=== PATIENT | female | born 1955 | race Caucasian/White ===

== ENCOUNTER → 2018-02-07 | Outpatient (CLI) | payer OTHER ==
[~2018-02-07] MED LIST: AML2.5T PO; BISO1TAB4 PO; CIPR-225 PO; HYDR-1231 PO; HYDR-3456 PO; MTF500T PO; OLME5TAB3 PO; TAMS0.4C98 PO; diclofenac
--- NOTE | 2018-02-07 11:19 | Diagnostic Imaging Report ---
PROCEDURE: MRI lumbar spine. TECHNIQUE: Multiplanar, multisequence MRI of the lumbar spine was performed without contrast. INDICATION: Low back pain. COMPARISON: No prior studies are available for comparison. FINDINGS: Curvature of the lumbar spine is normal. There is grade 1/2 spondylolisthesis of L4 on L5. There may be pars defects at this level. Vertebral body heights are maintained. The marrow signal intensity is unremarkable. No geographic marrow lesion or acute compression fracture is identified. Generalized degenerative disc and facet disease is seen, most severe at the L4-L5 level where there is significant disc space narrowing and desiccation. The conus is unremarkable approximately at the L2 level. L1-L2: No central canal or neuroforaminal stenosis is identified. L2-L3: There is left far lateral broad-based disc/osteophyte complex producing moderate narrowing of left neural foramen. Right neural foramen is patent. Central canal is patent. L3-L4: Central canal is widely patent. No significant neuroforaminal stenosis is seen. L4-L5: There is a marked hypertrophic facet degenerative change as well as ligamentous thickening and broad-based disc/osteophyte complex. This does result in severe central canal stenosis. There is also severe bilateral lateral recess and severe bilateral neuroforaminal stenosis. L5-S1: There are degenerative facet changes. Central canal is patent. There is moderate left and mild right neuroforaminal stenosis due to disc/osteophyte complex. There is bilateral lateral recess stenosis. The paraspinous tissues are unremarkable. IMPRESSION: Multilevel lumbar spondylosis and facet arthropathy, described level by level above. This is most severe at the L4-L5 level where there is severe central canal, lateral recess and bilateral neuroforaminal stenosis as well as grade 1/2 spondylolisthesis of L4 on L5. No acute compression fracture is detected. Dictated by: Dictated on workstation # [id number]
== END ==
LOC: RAD 09:55
PROVIDERS: ATTEND Physician Assistant
DX: M48.061 Spinal stenosis, lumbar region without neurogenic claudication (principal); M46.86 Other specified inflammatory spondylopathies, lumbar region; M43.16 Spondylolisthesis, lumbar region; M47.816 Spondylosis without myelopathy or radiculopathy, lumbar region
CPT/HCPCS: 72148

== ENCOUNTER → 2019-08-12 | Outpatient (CLI) | payer MEDICARE, OTHER ==
--- NOTE | 2019-08-12 17:18 | Diagnostic Imaging Report ---
INDICATION: Fall and right wrist pain. TIME OF EXAM: 4:57 p.m. FINDINGS: Three views of the right wrist were obtained. There is generalized demineralization. The distal radius and ulna appear intact. The carpus and visualized metacarpals are intact. No fractures are seen. IMPRESSION: No acute bony abnormality is detected. Dictated by: Dictated on workstation # [id number]
== END ==
LOC: RAD 16:23
PROVIDERS: ATTEND Family Medicine
DX: M25.531 Pain in right wrist (principal); W19.XXXA Unspecified fall, initial encounter
CPT/HCPCS: 73110

== ENCOUNTER 2021-11-23 21:19 | Emergency (ER) | payer MEDICARE ==
[~2021-11-23] VITALS: Ht 152 cm; Wt 58.7 kg
[~2021-11-23 21:19] MED LIST changes: -TAMS0.4C98 PO; +TMSL.4C PO
--- NOTE | 2021-11-23 21:37 | ED Abdominal Pain ---
General Chief Complaint: Abdominal/GI Problems Stated Complaint: LOWER ABDOMINAL PAIN Source of Information: Patient Exam Limitations: No Limitations History of Present Illness Date Seen by Provider: Nov 23, 2021 Time Seen by Provider: 21:26 Initial Comments 66-year-old female presents to the emergency department chief complaint of left flank pain onset abruptly around 7 PM this evening. Complains of nausea. Denies dysuria, hematuria or frequency. She does have a history of kidney stones in the past. No diarrhea, last bowel movement was yesterday. No fevers or chills. No productive cough or shortness of breath. Nothing really makes the pain any better or any worse. She has not taken anything for pain. Initially her pain was a "10" and currently a "7". All other review of systems reviewed and negative except as stated Timing/Duration: 1-3 Hours Severity/Quality: Severe Location: LLQ, Flank (left flank) Activities at Onset: None Associated Symptoms: Nausea/Vomiting (nausea without vomiting) Allergies and Home Medications Allergies Coded Allergies: Hydroxychloroquine (Verified Allergy, Severe, HIVES, 09/06/13) Patient Home Medication List Home Medication List Reviewed: Yes Amlodipine Besylate (Norvasc) 2.5 Mg Tablet, 2.5 MG PO DAILY, (Reported) Entered as Reported by: ESTRELLA BYRNE on 09/06/13246 Bisoprol/Hydrochlorothiazide (Ziac 2.5-6.25 Mg Tablet) 1 Tab Tablet, 1 TAB PO DAILY, (Reported) Entered as Reported by: ESTRELLA BYRNE on 09/06/13 024 Ciprofloxacin HCl (Cipro) 500 Mg Tablet, 500 MG PO BID Prescribed by: CHERELLE STOCK on 02/04/16 214 Hydrocodone Bit/Acetaminophen (Hydrocodone-Apap 5-325 Tablet) 1 Tab Tablet, 1-2 TAB PO Q6H PRN for PAIN Prescribed by: SID BEST on 02/14/14 0104 Hydrocodone/Acetaminophen (Vicodin Es 7.5-300 mg Tablet) 1 Each Tablet, 1-2 TAB PO Q4-6HR PRN for PAIN Prescribed by: SID BEST on 09/06/13 0347 Metformin Hcl (Metformin 500 Mg) 500 Mg Tablet, 1 EACH PO BID WITH MEALS, (Reported) Entered as Reported by: ESTRELLA BYRNE on 09/06/13 024 Olmesartan Medoxomil (Benicar) 5 Mg Tablet, 1 EACH PO DAILY, (Reported) Entered as Reported by: ESTRELLA BYRNE on 09/06/13 0247 Ondansetron (Ondansetron Odt) 4 Mg Tab.rapdis, 4 MG PO Q8H PRN for nausea Prescribed by: TORY LOGAN on 11/23/212325 Oxycodone HCl/Acetaminophen (Percocet 5-325 mg Tablet) 1 Each Tablet, 1 TAB PO Q6H Prescribed by: TORY LOGAN on 11/23/212327 Tamsulosin HCl (Flomax) 0.4 Mg Cap, 0.4 MG PO DAILY Prescribed by: CHERELLE STOCK on 02/04/162145 Tamsulosin HCl (Flomax) 0.4 Mg Cap, 0.4 MG PO HS Prescribed by: TORY LOGAN on 11/23/212325 [diclofenac] , (Reported) Entered as Reported by: TRACI YOUNG on 02/04/16 2100 Review of Systems Review of Systems Constitutional: see HPI EENTM: No Symptoms Reported Respiratory: No Symptoms Reported Cardiovascular: No Symptoms Reported Gastrointestinal: Abdominal Pain, Nausea Genitourinary: No Symptoms Reported Musculoskeletal: no symptoms reported Skin: no symptoms reported Psychiatric/Neurological: No Symptoms Reported All Other Systems Reviewed Negative Unless Noted: Yes Past Kknrjnw-Vesuil-Ippgsp Hx Immunizations Up To Date Tetanus Booster (TDap): Unknown Past Medical History High Cholesterol, Hypertension Reproductive Disorders: No Sexually Transmitted Disease: No Kidney Stones Rheumatoid Arthritis Diabetes, Non-Insulin dep Physical Exam Vital Signs Vital Signs - First Documented Capillary Refill : Height/Weight/BMI Height: 4'9" Weight: 136lbs. oz. [id number]; 30.29 BMI Method:Stated General Appearance: WD/WN, no apparent distress HEENT: PERRL/EOMI Neck: normal inspection Respiratory: lungs clear, normal breath sounds, no respiratory distress, no accessory muscle use Cardiovascular: regular rate, rhythm Gastrointestinal: soft, tenderness (slight tenderness to palpation Left upper quadrant/left flank; no CVA tenderness) Extremities: normal range of motion, non-tender, normal inspection, no pedal edema, no calf tenderness Back: normal inspection, no CVA tenderness Neurologic/Psychiatric: alert, normal mood/affect, oriented x 3 Skin: normal color, warm/dry Progress/Results/Core Measures Results/Orders Lab Results Laboratory Tests Test 11/23/21 21:42 11/23/21 21:48 Range/Units Urine Color YELLOW Urine Clarity SL CLOUDY Urine pH 7.0 5-9 Urine Specific [place] 1.015 L 1.016-1.022 Urine Protein NEGATIVE NEGATIVE Urine Glucose (UA) NEGATIVE NEGATIVE Urine Ketones NEGATIVE NEGATIVE Urine Nitrite NEGATIVE NEGATIVE Urine Bilirubin NEGATIVE NEGATIVE Urine Urobilinogen 0.2 < = 1.0 MG/DL Urine Leukocyte Esterase NEGATIVE NEGATIVE Urine RBC (Auto) 3+ H NEGATIVE Urine RBC 10-25 H /HPF Urine WBC NONE /HPF Urine Squamous Epithelial Cells RARE /HPF Urine Crystals NONE /LPF Urine Bacteria NEGATIVE /HPF Urine Casts NONE /LPF Urine Mucus NEGATIVE /LPF Urine Culture Indicated NO White Blood Count 8.0 4.3-11.0 10^3/uL Red Blood Count 4.05 3.80-5.11 10^6/uL Hemoglobin 11.7 11.5-16.0 g/dL Hematocrit 36 35-52 % Mean Corpuscular Volume 88 80-99 fL Mean Corpuscular Hemoglobin 29 25-34 pg Mean Corpuscular Hemoglobin Concent 33 32-36 g/dL Red Cell Distribution Width 14.5 10.0-14.5 % Platelet Count 106 L 130-400 10^3/uL Mean Platelet Volume 11.4 9.0-12.2 fL Immature Granulocyte % (Auto) 0 % Neutrophils (%) (Auto) 83 H 42-75 % Lymphocytes (%) (Auto) 9 L 12-44 % Monocytes (%) (Auto) 5 0-12 % Eosinophils (%) (Auto) 3 0-10 % Basophils (%) (Auto) 0 0-10 % Neutrophils # (Auto) 6.6 1.8-7.8 10^3/uL Lymphocytes # (Auto) 0.7 L 1.0-4.0 10^3/uL Monocytes # (Auto) 0.4 0.0-1.0 10^3/uL Eosinophils # (Auto) 0.2 0.0-0.3 10^3/uL Basophils # (Auto) 0.0 0.0-0.1 10^3/uL Immature Granulocyte # (Auto) 0.0 0.0-0.1 10^3/uL Sodium Level 137 135-145 MMOL/L Potassium Level 4.0 3.6-5.0 MMOL/L Chloride Level 104 98-107 MMOL/L Carbon Dioxide Level 20 L 21-32 MMOL/L Anion Gap 13 5-14 MMOL/L Blood Urea Nitrogen 18 7-18 MG/DL Creatinine 1.20 0.60-1.30 MG/DL Estimat Glomerular Filtration Rate 50 BUN/Creatinine Ratio 15 Glucose Level 205 H 70-105 MG/DL Calcium Level 8.9 8.5-10.1 MG/DL My Orders Orders - TORY LOGAN MD Ed Iv/Invasive Line Start (11/23/21 21:34) Cbc With Automated Diff (11/23/21 21:34) Basic Metabolic Panel (11/23/21:34) Ua Culture If Indicated (11/23/21:34) Abdomen/Kub 1view (11/23/21 21:34) Ns Iv 500 Ml (Sodium Chloride 0.9%) (11/23/21 21:45) Ondansetron Injection (Zofran Injectio (11/23/21 21:45) Ct Abd/Pelvis Wo(Kidney Stone) (11/23/21 22:12) Ketorolac Injection (Toradol Injection) (11/23/21 23:15) Oxycodone/Apap 5/325mg Tablet (Percocet (11/23/21 23:15) Tamsulosin Capsule (Flomax Capsule) (11/24/21 18:00) Tamsulosin Capsule (Flomax Capsule) (11/23/21 23:16) Rx-Ondansetron Po (Rx-Zofran Po) (11/23/21 23:48) Rx-Oxycodone/Apap 5-325 Mg (Rx-Percocet (11/24/21 00:00) Medications Given in ED Current Medications Medications Dose Ordered Sig/Lily Route Start Time Stop Time Status Last Admin Dose Admin Ketorolac Tromethamine 15 mg ONCE ONCE IVP 11/23/21 23:15 11/23/21 23:16 DC 11/23/21 23:08 15 MG Ondansetron HCl 4 mg ONCE ONCE IVP 11/23/21 21:45 11/23/21 21:46 DC 11/23/21 21:53 4 MG Oxycodone/ Acetaminophen 1 tab ONCE ONCE PO 11/23/21 23:15 11/23/21 23:16 DC 11/23/21 23:08 1 TAB Vital Signs/I&O 11/23/21 11/23/21 11/23/21 21:25 21:25 22:00 Temp 36.5 36.5 Pulse 85 85 75 Resp 22 20 18 B/P (MAP) 195/98 195/98 (130) 168/83 Pulse Ox 98 98 98 O2 Delivery Room Air Room Air Room Air Progress Progress Note #1: Time: 23:19 Progress Note Still having some pain. Just got toradol and percocet. 4mm prox ureteral stone. Anticipate that she will be able to pass it just fine. Will send home with pain and nausea medications as well as flomax. Strain urine. No sign of infection in the urine. Return precautions discussed. Rest of her labs are unremarkable. Progress Note #2: Time: 23:49 Progress Note Feels better, still slightly nauseated but pain much improved. I reviewed all of her findings with her and also advised her about the incidental left lower lobe nodule noted on CT in her lung. Recommended follow-up with Dr. Isabel regarding this. Return precautions discussed. We will give her some Percocet and Zofran for home tonight. She verbalized understanding, she is comfortable with plan of care. All questions are sought and answered. Diagnostic Imaging Diagonstic Imaging: CT Plain Films/CT/US/NM/MRI: abdomen, pelvis Comments [facility]. [place], [place] NAME: ELOY LEBLANC [facility] REC#: [id number] PT STATUS: REG ER : 1955 PHYSICIAN: TORY LOGAN MD ADMIT DATE: 11/23/21/ER Draft Date of Exam:11/23/21 CT ABD/PELVIS WO(KIDNEY STONE) PROCEDURE: CT urinary tract, rule out kidney stone. TECHNIQUE: Multiple contiguous axial images were obtained through the abdomen and pelvis without the use of intravenous contrast. Auto Exposure Controls were utilized during the CT exam to meet ALARA standards for radiation dose reduction. INDICATION: Left flank pain. COMPARISON: Radiographs of the abdomen from earlier the same day. FINDINGS: Included portions of the lung bases show coarse interstitial opacities, bilaterally. 6 x 9 mm micronodule was also identified within the included posterior margins of the lingula of the left upper lobe (image 11, series 2). CT ABDOMEN: Normal appendix is identified. Small bowel loops are nondistended. Multiple bilateral nonobstructive renal calculi are identified. Additionally, there is asymmetric mild left-sided hydroureteronephrosis. This is felt to be secondary to 4 mm calculus within the high left ureter (image 89, series 2). No ureteral calculi are seen on the right. Additionally, there is no hydroureteronephrosis or other evidence of obstruction on the right. No suspicious renal masses are identified on this noncontrast exam. The adrenal glands, spleen, pancreas and liver have an unremarkable noncontrast CT appearance. There is no loculated fluid collection, free fluid or free air within the abdomen. No abnormal mesenteric or retroperitoneal adenopathy is seen. Osseous structures show no acute abnormality. CT PELVIS: Urinary bladder is unopacified. No calculi are seen within the urinary bladder. There is no loculated fluid collection, free fluid or free air within the pelvis. No abnormal lymph nodes are identified. Osseous structures show no acute abnormality. IMPRESSION: 1. Mild left-sided hydroureteronephrosis secondary to 4 mm calculus within the proximal left ureter. 2. Multiple additional bilateral nonobstructive renal calculi. 3. Micronodular density within the included portions of the lingula of the left upper lobe. Please see below for follow-up recommendations. PULMONARY NODULE FOLLOW-UP Single nodule: <6 mm: * Low risk patient - no routine follow up * High risk patient - optional at 12 months 6-8 mm in size: * Low risk patient - Ct at 6-12 months, then consider at 18-24 months * High risk patient - Ct at 6-12 months, then at 18-24 months >8 mm * Low risk patient - consider CT at 3 months, PET/CT or tissue sampling * High risk patient - consider CT at 3 months, PET/CT, or tissue sampling (Certain patients at high risk with suspicious nodule morphology, upper lobe location, or both may warrant 12-month follow-up) Multiple nodules: <6 mm: * Low risk patient - no routine follow up * High risk patient - optional CT at 12 months 6-8 mm in size: * Low risk patient - Ct at 3-6 months, then consider CT at 18-24 months * High risk patient - CT at 3-6 months, then at 18-24 months >8 mm: * Low risk patient - CT at 3-6 months, then consider CT at 18-24 months * High risk patient - CT at 3-6 months, then at 18-24 months (Use most suspicious nodule as guide to management. Follow up interval may vary according to size and risk) Subsolid Nodules: <6 mm: * Ground glass - no routine follow up. (In certain suspicious nodules <6 mm, consider follow-up at 2 and 4 years. If solid component(s) or growth develops, consider resection.) * Part solid - no routine follow up. (In practice, part-solid nodules cannot be defined as such until 6mm or greater, and nodules <6 mm do not usually require follow-up. Persistent part-solid nodules with solid components 6mm or greater should be considered highly suspicious) * Multiple - Consider at 3-6 months. If stable, consider CT at 2 and 4 years. (Multiple <6mm pure ground-glass nodules are usually benign, but consider follow-up in selected patients at high risk at 2 and 4 years.) 6 mm or greater: * Ground glass - CT at 6-12 months to confirm persistence, then CT every 2 years until 5 years * Part solid - CT at 3-6 months to confirm persistence. If unchanged and solid component remains <6 mm, annual CT should be performed for 5 years * Multiple - CT at 3-6 months. Subsequent management based on the most suspicious nodule(s). Dictated on workstation # [id number] Dict: 11/23/212231 Trans: 11/23/212240 [facility] [id number] Interpreted by: PJ WOODS MD Electronically signed by: Diagonstic Imaging: Xray Comments [facility]. [place], [place] NAME: ELOY LEBLANC [facility] REC#: [id number] PT STATUS: REG ER : 1955 PHYSICIAN: TORY LOGAN MD ADMIT DATE: 11/23/21/ER Signed Date of Exam:11/23/21 ABDOMEN/KUB 1VIEW INDICATION: Left flank pain. History of kidney stones. COMPARISON: None. FINDINGS: Two frontal radiographic views of the abdomen were obtained. Small bowel loops are nondistended. There is no large collection of free intraperitoneal air. Postsurgical changes of prior lumbosacral fusion are noted. No unexpected extraosseous calcifications or radiopaque foreign bodies are seen. IMPRESSION: Nonobstructed small bowel gas pattern. Dictated by: Dictated on workstation # [id number] Dict: 11/23/212221 Trans: 11/23/212257 [facility] [id number] Interpreted by: PJ WOODS MD Electronically signed by: PJ WOODS MD 11/23/212257 Departure Impression Primary Impression: Left ureteral stone Disposition: HOME, SELF-CARE Condition: Improved Departure-Patient Inst. Decision time for Depature: 23:21 Referrals: MARTINE ISABEL DO (PCP/Family) Primary Care Physician MARYCHUY ABERNATHY MD Patient Instructions: Kidney Stones (DC) Add. Discharge Instructions: Drink lots of fluids to stay well hydrated. 2 quarts a day. Ibuprofen 3 pills every 6-8 hours as needed for pain. Always take ibuprofen with food. Percocet 5mg, every 6 hours as needed for worse pain. Always take stool softeners while taking narcotic pain medications. Nausea meds as needed every 8 hours (Zofran). Flomax at night for 2 weeks. Strain your urine until you pass your stone. Return to the ER for any worsening pain not controlled with prescription medications, fever, pain with urination, or other emergent concerns. Follow up with your primary as well as your Urologist. Scripts Oxycodone HCl/Acetaminophen (Percocet 5-325 mg Tablet) 1 Each Tablet 1 TAB PO Q6H for PAIN-MODERATE MDD 6 TABS, #15 TAB Prov: TORY LOGAN MD 11/23/21 Ondansetron (Ondansetron Odt) 4 Mg Tab.rapdis 4 MG PO Q8H PRN for nausea, #15 TAB Prov: TORY LOGAN MD 11/23/21 Tamsulosin HCl (Flomax) 0.4 Mg Cap 0.4 MG PO HS for 14 Days, #14 CAP Prov: TORY LOGAN MD 11/23/21 Copy Copies To 1: MARTINE ISABEL DO Copies To 2: MARYCHUY ABERNATHY MD DESMONDTORY MAGANA MD Nov 23, 2021 21:37
[2021-11-23 21:45] LABS: BILIRUBIN,URINE NEGATIVE (NEGATIVE); COLOR,URINE YELLOW; GLUCOSE, URINE (UA) NEGATIVE (NEGATIVE); KETONES,URINE NEGATIVE (NEGATIVE); LEUKOCYTE ESTERASE ,URINE NEGATIVE (NEGATIVE); NITRITE,URINE NEGATIVE (NEGATIVE); PROTEIN,URINE NEGATIVE (NEGATIVE)
[2021-11-23] MEDS ORDERED: ONDANSETRON 4 MG/2 ML (SDV) Z0FRAN IVP ONE (21:45)
[2021-11-23] MEDS ORDERED: NS IV 500 ML 500 ML IV SCH (21:45)
[2021-11-23 21:59] LABS: BACTERIA,URINE NEGATIVE /HPF; CLARITY,URINE SL CLOUDY; SQUAMOUS EPITHELIAL CELL,UR RARE /HPF
[2021-11-23 21:59] LABS: BASOPHILS % (AUTO) 0 % (0-10); EOSINOPHILS # (AUTO) 0.2 10^3/uL (0.0-0.3); EOSINOPHILS % (AUTO) 3 % (0-10); HEMATOCRIT 36 % (35-52); HEMOGLOBIN 11.7 g/dL (11.5-16.0); LYMPHOCYTES # (AUTO) 0.7 10^3/uL (1.0-4.0); LYMPHOCYTES % (AUTO) 9 % (12-44); MEAN CORPUSCULAR HEMOGLOBIN 29 pg (25-34); MEAN CORPUSCULAR HGB CONC 33 g/dL (32-36); MEAN CORPUSCULAR VOLUME 88 fL (80-99); MEAN PLATELET VOLUME 11.4 fL (9.0-12.2); MONOCYTES # (AUTO) 0.4 10^3/uL (0.0-1.0); MONOCYTES % (AUTO) 5 % (0-12); NEUTROPHILS # (AUTO) 6.6 10^3/uL (1.8-7.8); NEUTROPHILS % (AUTO) 83 % (42-75); PLATELET COUNT 106 10^3/uL (130-400)
--- NOTE | 2021-11-23 22:25 | Diagnostic Imaging Report ---
INDICATION: Left flank pain. History of kidney stones. COMPARISON: None. FINDINGS: Two frontal radiographic views of the abdomen were obtained. Small bowel loops are nondistended. There is no large collection of free intraperitoneal air. Postsurgical changes of prior lumbosacral fusion are noted. No unexpected extraosseous calcifications or radiopaque foreign bodies are seen. IMPRESSION: Nonobstructed small bowel gas pattern. Dictated by: Dictated on workstation # [id number]
[2021-11-23 22:26] LABS: CALCIUM 8.9 MG/DL (8.5-10.1)
[2021-11-23 22:30] LABS: CREATININE SERUM 1.2 MG/DL (0.60-1.30)
--- NOTE | 2021-11-23 22:41 | Diagnostic Imaging Report ---
PROCEDURE: CT urinary tract, rule out kidney stone. TECHNIQUE: Multiple contiguous axial images were obtained through the abdomen and pelvis without the use of intravenous contrast. Auto Exposure Controls were utilized during the CT exam to meet ALARA standards for radiation dose reduction. INDICATION: Left flank pain. COMPARISON: Radiographs of the abdomen from earlier the same day. FINDINGS: Included portions of the lung bases show coarse interstitial opacities, bilaterally. 6 x 9 mm micronodule was also identified within the included posterior margins of the lingula of the left upper lobe (image 11, series 2). CT ABDOMEN: Normal appendix is identified. Small bowel loops are nondistended. Multiple bilateral nonobstructive renal calculi are identified. Additionally, there is asymmetric mild left-sided hydroureteronephrosis. This is felt to be secondary to 4 mm calculus within the high left ureter (image 89, series 2). No ureteral calculi are seen on the right. Additionally, there is no hydroureteronephrosis or other evidence of obstruction on the right. No suspicious renal masses are identified on this noncontrast exam. The adrenal glands, spleen, pancreas and liver have an unremarkable noncontrast CT appearance. There is no loculated fluid collection, free fluid or free air within the abdomen. No abnormal mesenteric or retroperitoneal adenopathy is seen. Osseous structures show no acute abnormality. CT PELVIS: Urinary bladder is unopacified. No calculi are seen within the urinary bladder. There is no loculated fluid collection, free fluid or free air within the pelvis. No abnormal lymph nodes are identified. Osseous structures show no acute abnormality. IMPRESSION: 1. Mild left-sided hydroureteronephrosis secondary to 4 mm calculus within the proximal left ureter. 2. Multiple additional bilateral nonobstructive renal calculi. 3. Micronodular density within the included portions of the lingula of the left upper lobe. Please see below for follow-up recommendations. PULMONARY NODULE FOLLOW-UP Single nodule: <6 mm: * Low risk patient - no routine follow up * High risk patient - optional at 12 months 6-8 mm in size: * Low risk patient - Ct at 6-12 months, then consider at 18-24 months * High risk patient - Ct at 6-12 months, then at 18-24 months >8 mm * Low risk patient - consider CT at 3 months, PET/CT or tissue sampling * High risk patient - consider CT at 3 months, PET/CT, or tissue sampling (Certain patients at high risk with suspicious nodule morphology, upper lobe location, or both may warrant 12-month follow-up) Multiple nodules: <6 mm: * Low risk patient - no routine follow up * High risk patient - optional CT at 12 months 6-8 mm in size: * Low risk patient - Ct at 3-6 months, then consider CT at 18-24 months * High risk patient - CT at 3-6 months, then at 18-24 months >8 mm: * Low risk patient - CT at 3-6 months, then consider CT at 18-24 months * High risk patient - CT at 3-6 months, then at 18-24 months (Use most suspicious nodule as guide to management. Follow up interval may vary according to size and risk) Subsolid Nodules: <6 mm: * Ground glass - no routine follow up. (In certain suspicious nodules <6 mm, consider follow-up at 2 and 4 years. If solid component(s) or growth develops, consider resection.) * Part solid - no routine follow up. (In practice, part-solid nodules cannot be defined as such until 6mm or greater, and nodules <6 mm do not usually require follow-up. Persistent part-solid nodules with solid components 6mm or greater should be considered highly suspicious) * Multiple - Consider at 3-6 months. If stable, consider CT at 2 and 4 years. (Multiple <6mm pure ground-glass nodules are usually benign, but consider follow-up in selected patients at high risk at 2 and 4 years.) 6 mm or greater: * Ground glass - CT at 6-12 months to confirm persistence, then CT every 2 years until 5 years * Part solid - CT at 3-6 months to confirm persistence. If unchanged and solid component remains <6 mm, annual CT should be performed for 5 years * Multiple - CT at 3-6 months. Subsequent management based on the most suspicious nodule(s). Dictated by: Dictated on workstation # [id number]
[2021-11-23] MEDS ORDERED: oxyCODONE/APAP 5/325MG (PERCOCET 5) TABLET PO ONE (23:15)
[2021-11-23] MEDS ORDERED: KETOROLAC 30 MG/ML VIAL IVP ONE (23:15)
[2021-11-23] MEDS ORDERED: TAMSULOSIN 0.4 MG (FLOMAX) CAP PO ONE (23:16)
[2021-11-23] MEDS ORDERED: OXYC1TAB87 PO (23:26)
[2021-11-23] MEDS ORDERED: TMSL.4C PO (23:26)
[2021-11-23] MEDS ORDERED: ONDA4TAB11 PO (23:26)
[2021-11-23] MEDS ORDERED: RX-ONDANSETRON 4 MG ODT (ZOFRAN) PPK #4 PO STA (23:48)
[2021-11-24] MEDS ORDERED: RX-OXYCODONE/APAP 5-325 MG #4 TAB PK PO PRN
[2021-11-24 00:03] VITALS: BP 117/86
[2021-11-24] MEDS ORDERED: TAMSULOSIN 0.4 MG (FLOMAX) CAP PO SCH (18:00)
== END 2021-11-24 00:03 | disposition home or self-care (01) ==
LOC: EDUNIT# 21:19 → ER 21:20
DX: N13.2 Hydronephrosis with renal and ureteral calculous obstruction (principal)
CPT/HCPCS: 36415; 74018; 74176; 80048; 81000; 85025

== ENCOUNTER → 2021-12-01 | Outpatient (CLI) | payer MEDICARE ==
[~2021-12-01] MED LIST changes: +ONDA4TAB11 PO; +OXYC1TAB87 PO
== END ==
LOC: LAB 09:08
PROVIDERS: ATTEND Family Medicine
DX: N20.0 Calculus of kidney (principal)

== ENCOUNTER → 2022-04-12 | Outpatient (CLI) | payer MEDICARE ==
--- NOTE | 2022-04-12 17:09 | Diagnostic Imaging Report ---
INDICATION: Rheumatoid arthritis, swelling, and pain. COMPARISON: None available. TECHNIQUE: Six radiographs of the bilateral hands dated 04/12/2022. FINDINGS: Left: No acute fracture or dislocation. No destructive osseous process. No significant erosive changes. Mild scattered joint space narrowing including scattered DIP joints. Carpal alignment is well-maintained. Scapholunate interval is within normal limits. Mild background vascular calcifications. Right: No acute fracture or dislocation. An osseous excrescence is seen arising from the medial base of the 5th metacarpal. Additionally, the 5th metacarpal is slightly foreshortened and demonstrates a chronic deformity. Carpal alignment is within normal limits. Scapholunate interval is within normal limits. Mild scattered joint space narrowing, particularly involving scattered DIP joints. Mild background vascular calcifications. IMPRESSION: No acute fracture with mild scattered degenerative changes, greatest involving scattered DIP joints. Abnormal osseous excrescence arising from the base of the right hand 5th metacarpal, favored to relate to a chronic fracture deformity given additional deformity of the metacarpal. Osteochondroma is felt less likely. Mild background vascular calcifications. Dictated by: Dictated on workstation # [id number]
== END ==
LOC: RAD 10:35
PROVIDERS: ATTEND Family Medicine
DX: M19.042 Primary osteoarthritis, left hand (principal); M19.041 Primary osteoarthritis, right hand

== ENCOUNTER → 2022-07-20 | Outpatient (CLI) | payer MEDICARE ==
[~2022-07-20] MED LIST changes: +CATHETER FLUSH 10 ML SYR IV PRN; +HOLD METFORMIN - RECEIVED CONTRAST 20 ML VIAL IV SCH; +IOHEXOL 350 MG/ML 100 ML (OMNIPAQUE 350) VIAL IV ONE; +NS 100 ML (IVPB) BAG IV ONE
[2022-07-20 11:00] LABS: CREATININE SERUM 1.16 MG/DL (0.60-1.30)
--- NOTE | 2022-07-20 12:06 | Diagnostic Imaging Report ---
PROCEDURE: CT chest with contrast only. TECHNIQUE: Multiple contiguous axial images were obtained through the chest after administration of intravenous contrast. Auto Exposure Controls were utilized during the CT exam to meet ALARA standards for radiation dose reduction. INDICATION: Nodules in the lungs. COMPARISON: February 04, 2016 and November 23, 2021. FINDINGS: No pathologically enlarged lymph nodes within the chest. No aneurysmal dilatation of the thoracic aorta. The heart is within normal limits in size. No significant pericardial effusion. No pleural effusion. Mild mural thickening of the distal esophagus. The trachea is patent. No pneumothorax. Bilateral reticular and interstitial opacities are identified within the lungs, particularly the lung bases. This appears similar to the prior examination. Previously noted more focal lingular pulmonary nodule is no longer visualized. No new discrete pulmonary nodule. The partially visualized upper abdomen is grossly unremarkable. Scattered osseous degenerative changes without acute osseous abnormality. IMPRESSION: Previously noted lingular pulmonary nodule has resolved. Therefore, this was benign. Bilateral reticular and interstitial opacities are again noted within the lungs, particularly the lower lobes. These appear predominantly stable from the prior examination. This is favored to relate to underlying chronic interstitial lung disease. No acute infiltrate identified. Mild esophagitis. Dictated by: Dictated on workstation # [id number]
== END ==
LOC: RAD 10:17
PROVIDERS: ATTEND Family Medicine
DX: R91.8 Other nonspecific abnormal finding of lung field (principal)
CPT/HCPCS: 36415; 71260; 82565; 84520

== ENCOUNTER 2023-01-16 09:26 | Outpatient (RCR) | payer MEDICARE ==
[2023-01-09 16:03] LABS: ABSOLUTE RETIC # 68 10e9/uL (24-90); BASOPHILS # (AUTO) 0.1 10^3/uL (0.0-0.1); BASOPHILS % (AUTO) 1 % (0-10); EOSINOPHILS # (AUTO) 0.3 10^3/uL (0.0-0.3); EOSINOPHILS % (AUTO) 5 % (0-10); HEMATOCRIT 38 % (35-52); HEMOGLOBIN 12.4 g/dL (11.5-16.0); LYMPHOCYTES # (AUTO) 1.2 10^3/uL (1.0-4.0); LYMPHOCYTES % (AUTO) 21 % (12-44); MEAN CORPUSCULAR HEMOGLOBIN 28 pg (25-34); MEAN CORPUSCULAR HGB CONC 33 g/dL (32-36); MEAN CORPUSCULAR VOLUME 84 fL (80-99); MEAN PLATELET VOLUME 10.8 fL (9.0-12.2); MONOCYTES # (AUTO) 0.4 10^3/uL (0.0-1.0); MONOCYTES % (AUTO) 7 % (0-12); NEUTROPHILS # (AUTO) 3.8 10^3/uL (1.8-7.8); NEUTROPHILS % (AUTO) 67 % (42-75); PLATELET COUNT 176 10^3/uL (130-400); RETICULOCYTE % 1.51 % (0.50-2.40); WHITE BLOOD COUNT 5.7 10^3/uL (4.3-11.0)
[~2023-01-16 09:26] MED LIST changes: -CATHETER FLUSH 10 ML SYR IV PRN; -HOLD METFORMIN - RECEIVED CONTRAST 20 ML VIAL IV SCH; -IOHEXOL 350 MG/ML 100 ML (OMNIPAQUE 350) VIAL IV ONE; -NS 100 ML (IVPB) BAG IV ONE
== END 2023-02-07 | disposition home or self-care (01) ==
LOC: ONC 09:26
PROVIDERS: ATTEND Internal Medicine Hematology & Oncology
DX: D69.6 Thrombocytopenia, unspecified (principal); M05.9 Rheumatoid arthritis with rheumatoid factor, unspecified; E11.9 Type 2 diabetes mellitus without complications; I10 Essential (primary) hypertension; E78.00 Pure hypercholesterolemia, unspecified
CPT/HCPCS: 82607; 82728; 83090; 83540; 83550; 83615; 83921; 85025; 85045

== ENCOUNTER 2023-02-27 09:21 | Outpatient (RCR) | payer MEDICARE ==
[2023-02-27 09:52] LABS: BASOPHILS % (AUTO) 1 % (0-10); EOSINOPHILS # (AUTO) 0.2 10^3/uL (0.0-0.3); EOSINOPHILS % (AUTO) 5 % (0-10); HEMATOCRIT 37 % (35-52); HEMOGLOBIN 12.2 g/dL (11.5-16.0); LYMPHOCYTES # (AUTO) 0.9 10^3/uL (1.0-4.0); LYMPHOCYTES % (AUTO) 20 % (12-44); MEAN CORPUSCULAR HEMOGLOBIN 28 pg (25-34); MEAN CORPUSCULAR HGB CONC 33 g/dL (32-36); MEAN CORPUSCULAR VOLUME 84 fL (80-99); MONOCYTES # (AUTO) 0.4 10^3/uL (0.0-1.0); MONOCYTES % (AUTO) 9 % (0-12); NEUTROPHILS # (AUTO) 2.8 10^3/uL (1.8-7.8); NEUTROPHILS % (AUTO) 65 % (42-75); PLATELET COUNT 155 10^3/uL (130-400); WHITE BLOOD COUNT 4.3 10^3/uL (4.3-11.0)
== END 2023-03-09 | disposition home or self-care (01) ==
LOC: ONC 09:21
PROVIDERS: ATTEND Internal Medicine Hematology & Oncology
DX: D50.9 Iron deficiency anemia, unspecified (principal); E11.9 Type 2 diabetes mellitus without complications; I10 Essential (primary) hypertension; E78.00 Pure hypercholesterolemia, unspecified
CPT/HCPCS: 36415; 82728; 83540; 83550; 85025

== ENCOUNTER 2023-06-14 08:11 | Outpatient (RCR) | payer MEDICARE ==
[2023-06-11 09:17] VITALS: BP 125/81
[2023-06-11] MEDS: IRON SUCROSE 200 MG/10 ML VIAL IV SCH (09:29)
[~2023-06-14] VITALS: Ht 152.4 cm; Wt 60.5 kg
[~2023-06-14 08:11] MED LIST changes: +IRON SUCROSE 200 MG/10 ML VIAL IV SCH
[2023-06-14 09:05] VITALS: BP 151/83
[2023-06-14] MEDS: IRON SUCROSE 200 MG/10 ML VIAL IV SCH (09:19)
[2023-07-11] MEDS ORDERED: ZINC50TA51 PO (16:02)
[2023-07-11] MEDS ORDERED: METF-397 PO (16:02)
[2023-07-11] MEDS ORDERED: BISO-3 PO (16:02)
[2023-07-11] MEDS ORDERED: LORA10TA7 PO (16:02)
[2023-07-11] MEDS ORDERED: ATOR10TA PO (16:02)
[2023-07-11] MEDS ORDERED: AMLO-250 PO (16:02)
[2023-07-11] MEDS ORDERED: HYDR200T71 PO (16:02)
[2023-07-11] MEDS ORDERED: OLME20TA24 PO (16:02)
== END 2023-07-10 | disposition home or self-care (01) ==
LOC: ONC 08:11
PROVIDERS: ATTEND Internal Medicine Hematology & Oncology
DX: D50.9 Iron deficiency anemia, unspecified (principal); E11.9 Type 2 diabetes mellitus without complications; I10 Essential (primary) hypertension; E78.00 Pure hypercholesterolemia, unspecified
CPT/HCPCS: 36415; 96374

== ENCOUNTER 2023-07-11 05:34 | Outpatient (CLI) | payer MEDICARE ==
[~2023-07-11] VITALS: Ht 144.8 cm; Wt 60.3 kg
[~2023-07-11 05:34] MED LIST changes: -IRON SUCROSE 200 MG/10 ML VIAL IV SCH
[2023-07-11] MEDS ORDERED: BISO-3 PO (16:02)
[2023-07-11] MEDS ORDERED: ATOR10TA PO (16:02)
[2023-07-11] MEDS ORDERED: HYDR200T71 PO (16:02)
[2023-07-11] MEDS ORDERED: ZINC50TA51 PO (16:02)
[2023-07-11] MEDS ORDERED: LORA10TA7 PO (16:02)
[2023-07-11] MEDS ORDERED: OLME20TA24 PO (16:02)
[2023-07-11] MEDS ORDERED: METF-397 PO (16:02)
[2023-07-11] MEDS ORDERED: AMLO-250 PO (16:02)
== END 2023-07-11 16:16 | disposition home or self-care (01) ==
LOC: PREOP 05:34
PROVIDERS: ATTEND Surgery
DX: Z01.818 Encounter for other preprocedural examination (principal)

== ENCOUNTER 2023-07-24 09:38 | Day surgery (SDC) | payer MEDICARE ==
[~2023-07-24] VITALS: Ht 144.8 cm; Wt 60.3 kg
[~2023-07-24 09:38] MED LIST changes: +AMLO-250 PO; +ATOR10TA PO; +BISO-3 PO; +HYDR200T71 PO; +LORA10TA7 PO; +METF-397 PO; +OLME20TA24 PO; +ZINC50TA51 PO
[2023-07-24] MEDS ORDERED: LACTATED RINGERS 1,000 ML 1,000 ML IV STA (09:48)
[2023-07-24] MEDS ORDERED: HURRICAINE EXT TUBE (BENZOCAINE) XX PRN (10:00)
--- NOTE | 2023-07-24 10:59 | Progress Note-Pre Operative ---
Pre-Operative Progress Note Date H&P Reviewed: Jul 24, 2023 Time H&P Reviewed: 10:58 History & Physical: H&P Reviewed, Patient Examed, No changes noted Pre-Operative Diagnosis: Iron Deficiency Anemia DINO GAGNON DO Jul 24, 2023 10:58
[2023-07-24 11:01] VITALS: BP 135/78
[2023-07-24] MEDS ORDERED: MIDAZOLAM INJ 2 MG/2 ML VIAL ONE (11:33)
[2023-07-24] MEDS ORDERED: PHENYLEPHRINE 100 MCG/ML 10 ML (ANESTHESIA) SYR ONE (11:56)
--- NOTE | 2023-07-24 12:04 | Progress Note-Post Operative ---
Post-Operative Progess Note Surgeon (s)/Shaker Operator (s) Surgeon DINO GAGNON DO Shaker Operator: n/a Pre-Operative Diagnosis Iron Deficiency Anemia Post-Operative Diagnosis duodenal ulcer, gastritis, sigmoid polyp Procedure & Operative Findings Date of Procedure 07/24/23 Procedure Performed/Findings EGD with biopsies, colonoscopy with hot biopsy polypectomy x1 Anesthesia Type per DIVISIONAL STOREKEEPER Estimated Blood Loss Estimated blood loss (mL): none Specimens/Packing Specimens Removed Duodenal ulcer x1, antrum x1, sigmoid polyp x1 DINO GAGNON DO Jul 24, 2023 12:04
[2023-07-24 12:05] VITALS: BP 97/55
[2023-07-24] MEDS ORDERED: PANT40TA2 PO (12:05)
--- NOTE | 2023-07-24 12:07 | Discharge Inst-Simple/Standard ---
Discharge Inst-Standard Discharge Medications New, Converted or Re-Newed RX: Transmitted to Pharmacy Patient Instructions/Follow Up Plan of Care/Instructions/FU: 2-4 weeks [address] Activity as Tolerated: Yes Discharge Diet: Regular Diet DINO GAGNON DO Jul 24, 2023 12:07
[2023-07-24 12:10] VITALS: BP 95/56
[2023-07-24 12:26] VITALS: BP 95/56
[2023-07-24 12:40] VITALS: BP 121/63
--- NOTE | 2023-07-24 13:02 | Anesthesia-General Post-Op ---
MAC Patient Condition Mental Status/LOC: Same as Preop Cardiovascular: Satisfactory Nausea/Vomiting: Absent Respiratory: Satisfactory Pain: Controlled Complications: Absent Post Op Complications Complications None Follow Up Care/Instructions Patient Instructions None needed. Anesthesiology Discharge Order Discharge Order Patient is doing well, no complaints, stable vital signs, no apparent adverse anesthesia problems. No complications reported per nursing. REYNA ESPINOZA CRNA Jul 24, 2023 13:01
--- NOTE | 2023-07-24 20:14 | OPERATIVE REPORT ---
DATE OF SERVICE: 07/24/2023 PREOPERATIVE DIAGNOSIS: Iron deficiency anemia. POSTOPERATIVE DIAGNOSES: Duodenal ulcer, gastritis, sigmoid polyp. PROCEDURES: EGD with biopsies, colonoscopy with hot biopsy polypectomy x1. SURGEON: Dino Kat DO ANESTHESIA: Per CERTIFIED MEDICATION AIDE. ESTIMATED BLOOD LOSS: None. COMPLICATIONS: None. INDICATIONS: The patient is a 68-year-old female with iron deficiency anemia. She is recommended EGD and colonoscopy per further evaluation. She understands risks and benefits and wishes to proceed. Consent was signed and in chart. DESCRIPTION OF PROCEDURE: The patient was taken to endoscopy suite, placed in left lateral recumbent position. Timeout was performed. Scope was inserted in the mouth, down the esophagus, stomach, into the duodenum without difficulty. No polyps, masses or ulcerations in the second portion. First portion had some small ulcerations that appeared to be healing. Biopsy of the area was obtained. Scope was then slowly retracted back into stomach where it had gastritis appearance. Biopsy of the antrum was obtained. Scope was retroflexed noting no other pathology. Scope was returned to its normal position, slowly withdrawn until distal esophagus. No polyps, masses or ulcerations. Scope was slowly retracted back until completely removed. Digital rectal exam was performed. No palpable polyps, masses or ulcerations. Scope was inserted in the rectum, advanced all the way to the cecum with minimal difficulty. Prep was adequate. Scope was slowly retracted. No polyps, masses or ulcerations in the cecum, ascending, transverse, descending, and in the sigmoid colon, there was small polyp, which hot biopsy polypectomy was performed. Scope was then continuously retracted back until completely removed. The patient tolerated the procedure well without complications, taken to recovery room in stable condition. RECOMMENDATIONS: The patient will be on Protonix 40 mg daily. Will follow up in 2-4 weeks in the office, and see how symptoms are doing with the above dose. She will need repeat colonoscopy in 5 years due to polyps. Job ID: [id number] DocumentID: [id number] Dictated Date: 07/24/2023 12:06:10 [place] Date: 07/24/2023 20:11:00 Dictated By: DINO KAT DO
[2023-07-25 09:34] LABS: BASOPHILS % (AUTO) 1 % (0-10); EOSINOPHILS # (AUTO) 0.3 10^3/uL (0.0-0.3); EOSINOPHILS % (AUTO) 5 % (0-10); HEMATOCRIT 44 % (35-52); HEMOGLOBIN 14.5 g/dL (11.5-16.0); LYMPHOCYTES # (AUTO) 0.9 10^3/uL (1.0-4.0); LYMPHOCYTES % (AUTO) 19 % (12-44); MEAN CORPUSCULAR HEMOGLOBIN 30 pg (25-34); MEAN CORPUSCULAR HGB CONC 33 g/dL (32-36); MEAN CORPUSCULAR VOLUME 91 fL (80-99); MEAN PLATELET VOLUME 11.4 fL (9.0-12.2); MONOCYTES # (AUTO) 0.5 10^3/uL (0.0-1.0); MONOCYTES % (AUTO) 9 % (0-12); NEUTROPHILS # (AUTO) 3.1 10^3/uL (1.8-7.8); NEUTROPHILS % (AUTO) 65 % (42-75); PLATELET COUNT 117 10^3/uL (130-400); WHITE BLOOD COUNT 4.8 10^3/uL (4.3-11.0)
== END 2023-07-24 12:55 | disposition home or self-care (01) ==
LOC: ENDO 09:38
PROVIDERS: ATTEND Surgery
DX: K26.9 Duodenal ulcer, unspecified as acute or chronic, without hemorrhage or perforation (principal); K29.80 Duodenitis without bleeding; K29.70 Gastritis, unspecified, without bleeding; K63.5 Polyp of colon; D50.9 Iron deficiency anemia, unspecified; E11.9 Type 2 diabetes mellitus without complications; Z79.84 Long term (current) use of oral hypoglycemic drugs
CPT/HCPCS: 88305

== ENCOUNTER 2023-07-25 09:15 | Outpatient (RCR) | payer MEDICARE ==
[~2023-07-25 09:15] MED LIST changes: +PANT40TA2 PO
== END 2023-08-09 | disposition home or self-care (01) ==
LOC: ONC 09:15
PROVIDERS: ATTEND Internal Medicine Hematology & Oncology
DX: D50.9 Iron deficiency anemia, unspecified (principal); K26.9 Duodenal ulcer, unspecified as acute or chronic, without hemorrhage or perforation; D61.818 Other pancytopenia; E11.9 Type 2 diabetes mellitus without complications; I10 Essential (primary) hypertension; E78.00 Pure hypercholesterolemia, unspecified
CPT/HCPCS: 99214